=== PATIENT | female | born 1995 | race Caucasian/White ===

== ENCOUNTER 2017-03-20 18:55 | Emergency (ER) | payer MEDICAID ==
[~2017-03-20] VITALS: Ht 167.6 cm; Wt 51.7 kg
[2017-03-20] MEDS ORDERED: BC PILL (19:10)
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
[2017-03-20] MEDS ORDERED: ONDANSETRON 4 MG/2 ML VIAL IV ONE (19:30)
[2017-03-20] MEDS ORDERED: HYDROMORPHONE 1 MG/1 ML DISP.SYRIN IV ONE ×2 (19:30→21:00)
--- NOTE | 2017-03-20 19:50 | NUR ---
IV established, labs drawn and sent. Pt medicated for discomfort, will monitor for effects of medication. Pt resting in position of comfort for self.
[2017-03-20 19:57] LABS: BASOPHILS % (AUTO) 0.3 % (0.0-2.0); EOSINOPHILS % (AUTO) 0.6 % (0.0-7.0); HEMOGLOBIN 14.6 G/DL (12.0-16.0); LYMPHOCYTES # (AUTO) 2.3 K/UL (0.8-4.8); LYMPHOCYTES % (AUTO) 30.9 % (20.5-51.5); MEAN CORPUSCULAR HGB CONC 33 g/dL (32.0-37.0); MONOCYTES # (AUTO) 0.5 K/UL (0.1-1.30); MONOCYTES % (AUTO) 6.3 % (0.0-11.0); NEUTROPHILS # (AUTO) 4.8 K/UL (1.8-8.9); NEUTROPHILS % (AUTO) 61.9 % (38.5-71.5); PLATELET COUNT (AUTO) 264 K/UL (150-450); RED BLOOD CELL COUNT(AUTO) 5.06 MIL/UL (4.2-5.4); WHITE BLOOD COUNT (AUTO) 7.6 K/UL (4.0-11.2)
[2017-03-20] MEDS ORDERED: HYDROMORPHONE 2 MG/1 ML DISP.SYRIN ONE ×2 (19:57→21:09)
[2017-03-20] MEDS ORDERED: ONDANSETRON 4 MG/2 ML VIAL ONE (19:58)
[2017-03-20 19:59] LABS: CREATININE 1.1 mg/dL (0.6-1.3); POTASSIUM 3.7 mmol/L (3.5-5.1)
[2017-03-20] MEDS ORDERED: IOHEXOL 300MG/ML 100 ML INFUS..BTL ONE (19:59)
[2017-03-20] MEDS ORDERED: IV NORMAL SALINE 250 ML IV ONE (19:59)
[2017-03-20] MEDS ORDERED: NORMAL SALINE FLUSH 10 ML DISP.SYRIN ONE (19:59)
[2017-03-20 20:01] LABS: *BILIRUBIN,URIN NEGATIVE (NEGATIVE); *BLOOD, URINE 2+ (NEGATIVE); *COLOR,URINE YELLOW (YELLOW); *KETONES,URINE 1+ (NEGATIVE); *PROTEIN,URINE NEGATIVE (NEGATIVE); *UROBILINOGEN,URINE 0.2 E.U./dl (NORMAL); LEUKOCYTE ESTERASE ,URINE NEGATIVE (NEGATIVE); NITRITE, URINE NEGATIVE (NEGATIVE); UGLUCOSE NEGATIVE (NEGATIVE)
[2017-03-20 20:02] LABS: *URINE HCG, QUAL NEGATIVE (NEGATIVE)
[2017-03-20 20:10] LABS: *CLARITY,URINE SLIGHTLY HAZY (CLEAR); BILIRUBIN,DIRECT 0.1 mg/dL (0.0-0.2); BILIRUBIN,TOTAL 0.5 mg/dL (0.2-1.0); TOTAL PROTEIN, SERUM 8.2 g/dL (6.4-8.2)
[2017-03-20 20:11] LABS: BACTERIA,URINE FEW /HPF (NONE SEEN); MUCUS,URINE FEW /LPF (0-FEW); SQUAMOUS EPITHELIAL CELL,UR MODERATE /HPF (NONE SEEN); WBC,URINE 0-3 /HPF (0-3)
--- NOTE | 2017-03-20 20:15 | NUR ---
Pt to CT via [facility].
--- NOTE | 2017-03-20 20:40 | NUR ---
Pt returned from CT via gurney. Pt resting in position of comfort for self. Pt sts pain is a 6/10 at this time and is tolerable, declines need for further medication.
--- NOTE | 2017-03-20 21:09 | NUR ---
Pt medicated for discomfort, will monitor for effects of medication. Pt resting in position of comfort for self.
--- NOTE | 2017-03-20 21:30 | NUR ---
Pt c/o little to no pain at this time. Pt stable for discharge per Dr. Sanchez. IV dc'd, catheter intact, drsg applied. No problems noted to site. Pt and boyfriend given ACI, both verbalized understanding of dc instructions. Pt wheeled out of ER via w/c to the curb to get in her ride home.
[2017-03-20 23:02] VITALS: BP 141/77
== END 2017-03-20 21:30 | disposition home or self-care (01) ==
LOC: ER 18:55
DX: T20.35XA Burn of third degree of scalp [any part], initial encounter (principal); V49.50XA Passenger injured in collision with unspecified motor vehicles in traffic accident, initial encounter; Y93.89 Activity, other specified; Y92.413 State road as the place of occurrence of the external cause; Y99.9 Unspecified external cause status
CPT/HCPCS: 36415; 71010; 84703; 85025; 85730; 93005; A4663; J1170; J2405; J3490; J7050; Q9967